=== PATIENT | female | born 1965 | race Caucasian/White ===

== ENCOUNTER 2017-04-02 08:56 | Day surgery (SDC) | payer MEDICAID ==
[~2017-04-02] VITALS: Ht 157.5 cm; Wt 77.3 kg
[~2017-04-02 08:56] MED LIST: DIAZ10TA PO; HYDR-3972 PO; IBUP-1574 PO; OMEP-84 PO; PROM25TA14 PO; TRAM50TA2 PO
[2017-04-02] MEDS ORDERED: PANT-47 PO (09:25)
[2017-04-02] MEDS ORDERED: ZOLP5TAB2 PO (09:25)
[2017-04-02] MEDS ORDERED: EFF25T PO (09:25)
[2017-04-02] MEDS ORDERED: FLUT16SP2 BOTHNARES (09:26)
[2017-04-02 09:47] VITALS: BP 145/89
[2017-04-02] MEDS ORDERED: fentaNYL/PF 50MCG/1 ML 2ML syringe ONE (09:53)
[2017-04-02] MEDS ORDERED: MIDAZolam 1mg/ml 10ml vial ONE (09:54)
[2017-04-02] MEDS ORDERED: LIDOcaine Viscous 15ml cup ONE (09:54)
[2017-04-02 11:00] VITALS: BP 107/78
[2017-04-02 11:10] VITALS: BP 130/88
[2017-04-02 11:20] VITALS: BP 125/77
== END 2017-04-02 11:35 | disposition home or self-care (01) ==
LOC: GI LAB 08:56
PROVIDERS: ATTEND Internal Medicine Gastroenterology
DX: K44.9 Diaphragmatic hernia without obstruction or gangrene (principal); K21.0 Gastro-esophageal reflux disease with esophagitis; K22.2 Esophageal obstruction; M19.90 Unspecified osteoarthritis, unspecified site; F32.9 Major depressive disorder, single episode, unspecified; F17.210 Nicotine dependence, cigarettes, uncomplicated; Z85.41 Personal history of malignant neoplasm of cervix uteri; Z79.1 Long term (current) use of non-steroidal anti-inflammatories (NSAID); Z88.6 Allergy status to analgesic agent; Z90.710 Acquired absence of both cervix and uterus; Z87.19 Personal history of other diseases of the digestive system; Z98.890 Other specified postprocedural states; Z72.89 Other problems related to lifestyle; Z79.899 Other long term (current) drug therapy
CPT/HCPCS: 43239; 43248; 99152; J2250; J3010; J7030; A4620; G0500

== ENCOUNTER 2017-04-07 13:15 | Inpatient (IN) | payer MEDICAID ==
[~2017-04-07] VITALS: Ht 157.5 cm; Wt 75.9 kg
[2017-04-07] VITALS (11 sets, daily range): BP systolic 108–156; BP diastolic 70–88
[~2017-04-07 13:15] MED LIST changes: -DIAZ10TA PO; +EFF25T PO; +FLUT16SP2 BOTHNARES; -HYDR-3972 PO; -OMEP-84 PO; +PANT-47 PO; -PROM25TA14 PO; +ZOLP5TAB2 PO
[2017-04-07 14:05] LABS: BASOPHILS % (AUTO) 0.1 % (0-1); EOSINOPHILS # (AUTO) 0.1 X10'3 (0-0.9); EOSINOPHILS % (AUTO) 0.9 % (0-6); HEMATOCRIT 47.4 % (35.0-45.0); HEMOGLOBIN 16.3 g/dl (12.0-16.0); LYMPHOCYTES % (AUTO) 19.6 % (21-51); MEAN CORPUSCULAR HEMOGLOBIN 31.9 PG (27.0-31.0); MEAN CORPUSCULAR HGB CONC 34.3 % (33.0-36.5); MEAN CORPUSCULAR VOLUME 92.9 FL (78-98); MEAN PLATELET VOLUME 8.6 FL (7.4-10.4); MONOCYTES # (AUTO) 0.5 X10'3 (0-0.9); MONOCYTES % (AUTO) 4.4 % (2-12); NEUTROPHILS # (AUTO) 7.7 X10'3 (1.8-7.7); PLATELET COUNT 306 X10'3 (140-440); RED CELL DISTRIBUTION WIDTH 12.6 % (11.5-14.5); WHITE BLOOD COUNT 10.3 X10'3 (4.5-11.0)
[2017-04-07 14:13] LABS: INR 0.9 INR; PROTHROMBIN TIME 9.6 SECONDS (9.0-12.0)
[2017-04-07 14:21] LABS: ALANINE AMINOTRANSFERASE 30 U/L (12-78); ALBUMIN 3.9 G/DL (3.4-5.0); ALKALINE PHOSPHATASE 144 IU/L (46-116); ANION GAP 9 (8-16); ASPARTATE AMINO TRANSFERASE 19 U/L (10-37); BILIRUBIN,TOTAL 0.3 MG/DL (0.1-1.0); BLOOD UREA NITROGEN 11 MG/DL (7-18); BUN/CREATININE RATIO 14.1 (6.6-38.0); CHLORIDE 101 MMOL/L (99-107); CREATININE 0.78 MG/DL (0.40-0.90); GLUCOSE 156 MG/DL (70-104); POTASSIUM 3.9 MMOL/L (3.5-5.1); SODIUM 140 MMOL/L (135-145); TOTAL CARBON DIOXIDE 30.3 MMOL/L (24-32); TOTAL PROTEIN 7.7 G/DL (6.4-8.2); eGFR 78 ML/MIN
[2017-04-07] MEDS ORDERED: ketorolac trometh. 30mg/ml inj. IV ONE (15:00)
[2017-04-07] MEDS ORDERED: normal saline 1000ML IV soln IVB ONE (15:00)
[2017-04-07] MEDS ORDERED: ondansetron/PF 4mg/2ml inj IV ONE (15:00)
[2017-04-07 15:14] LABS: LIPASE 156 U/L (73-393)
[2017-04-07] MEDS ORDERED: piperacillin/tazo 3.375gm/50ml 50 ML IV SCH (16:50)
[2017-04-07] MEDS ORDERED: HYDROmorphone 1 mg/ml syringe IV ONE (16:50)
[2017-04-07 17:08] LABS: CLARITY,URINE CLEAR (Clear); COLOR,URINE YELLOW (Yellow); GLUCOSE, URINE NEGATIVE (Neg); KETONES,URINE NEGATIVE (Neg); LEUKOCYTE ESTERASE ,URINE NEGATIVE (Neg); NITRITES, URINE NEGATIVE (Neg); OCCULT BLOOD,URINE TRACE-INTACT (Neg); PROTEIN,URINE NEGATIVE (Neg); UROBILINOGEN,URINE 0.2 E.U/dL (0.2-1.0)
[2017-04-07] MEDS ORDERED: HYDROmorphone inj. 0.5 MG/0.5 ML DISP.SYRIN ONE (17:10)
[2017-04-07 17:17] LABS: UA COLLECTION TYPE CLN CATCH MIDSTREAM
[2017-04-07 17:18] LABS: BACTERIA,URINE NONE SEEN /HPF (Neg); MUCUS STRANDS NONE SEEN /LPF (Neg); RBC,URINE 0-2 /HPF (0-2); SQUAMOUS EPITHELIAL CELL,UR FEW /LPF (FEW); WBC,URINE NONE SEEN /HPF (0-4)
[2017-04-07] MEDS ORDERED: FAMO-128 PO (17:24)
[2017-04-07] MEDS ORDERED: pneumococcal 23-VAL P-sac vacc 25 mcg/0.5ml vial IMVAC ONE (18:05)
[2017-04-07] MEDS ORDERED: FLU VACC QS2017-18 36MOS UP/PF 60 MCG/0.5 ML SYRINGE IMVAC ONE (18:05)
[2017-04-07] MEDS ORDERED: HYDROmorphone 1 mg/ml syringe IV PRN ×2 (18:10→21:30)
[2017-04-07] MEDS ORDERED: potassium Cl 40MEQ/NS 500ml 500 ML IV PRN ×2 (18:10)
[2017-04-07] MEDS ORDERED: ondansetron/PF 4mg/2ml inj IV PRN ×3 (18:10→22:05)
[2017-04-07] MEDS ORDERED: potassium Cl 20 mEq SR tablet PO PRN ×2 (18:10)
[2017-04-07] MEDS ORDERED: magnesium 4gm in 100ml NS 100 ML IV PRN (18:10)
[2017-04-07] MEDS ORDERED: magnesium 2GM in 50ml NS 50 ML IV PRN (18:10)
[2017-04-07] MEDS ORDERED: magnesium Cl slow-release 64mg tablet PO PRN (18:10)
[2017-04-07] MEDS ORDERED: mag hydrox/Alum hydrox/simeth 30ml oral suspension PO PRN (18:10)
[2017-04-07] MEDS ORDERED: magnesium hydroxide 30ml (MOM) UD suspension PO PRN (18:10)
[2017-04-07] MEDS: HYDROmorphone inj. 0.5 MG/0.5 ML DISP.SYRIN IV PRN (20:22)
[2017-04-07] MEDS ORDERED: BUPIVAcaine/PF 2.5 mg/ml (0.25%) 30ml vial ONE (20:23)
[2017-04-07] MEDS ORDERED: propofol inj 20 ML IV ONE (20:39)
[2017-04-07] MEDS ORDERED: midazolam 2 mg/2 ml injection ONE (20:39)
[2017-04-07] MEDS ORDERED: fentaNYL/PF 50MCG/1 ML 2ML syringe ONE (20:39)
[2017-04-07] MEDS ORDERED: rocuronium 10mg/ml inj IV ONE (20:40)
[2017-04-07] MEDS ORDERED: sevoflurane 250ml liquid IH ONE (20:46)
[2017-04-07] MEDS ORDERED: ceFOXitin 1000 MG inj ONE ×2 (21:02)
[2017-04-07] MEDS ORDERED: ringers solution, lacted 1,000 ML IV SCH (21:30)
[2017-04-07] MEDS ORDERED: meperidine/PF 50mg/ml syringe IV PRN ×2 (21:30)
[2017-04-07] MEDS ORDERED: neostigmine methylsulfate 1 MG/ML 10ml vial ONE (21:52)
[2017-04-07] MEDS ORDERED: glycopyrrolate 0.2mg/ml inj ONE (21:53)
[2017-04-07] MEDS: meperidine/PF 50mg/ml syringe IV PRN ×4 (22:29→22:51)
[2017-04-08] VITALS (9 sets, daily range): BP systolic 95–141; BP diastolic 65–82
[2017-04-08] MEDS: HYDROmorphone inj. 0.5 MG/0.5 ML DISP.SYRIN IV PRN ×8 (00:37→16:49)
[2017-04-08] MEDS: metroNIDAZOLE-Flagyl 500mg/NS 100 ML IV SCH ×4 (00:38→23:13)
[2017-04-08] MEDS: LORazepam 2 mg/ml vial IV PRN ×2 (00:56→19:56)
[2017-04-08] MEDS: normal saline 1000ml 1,000 ML IV SCH ×4 (01:00→23:13)
[2017-04-08] MEDS ORDERED: HYDROmorphone 2mg/ml vial IV PRN ×2 (01:30→01:50)
[2017-04-08] MEDS ORDERED: HYDROmorphone inj. 0.5 MG/0.5 ML DISP.SYRIN ONE (02:10)
[2017-04-08] MEDS: pantoprazole 40 MG vial IV SCH (07:51)
[2017-04-08] MEDS: K and/or MAG REPLACEMENT MC SCH (08:00)
[2017-04-08] MEDS: levoFLOXACIN-Levaquin 500mg/D5 100 ML IV SCH (10:16)
[2017-04-08] MEDS: lactobacillus rhamnosus 10,000 MMU CELLS/CAPSULE PO SCH (16:48)
[2017-04-08] MEDS: HYDROcodone/acetaminophen 10/325mg tab PO PRN ×2 (19:09→23:13)
[2017-04-08] MEDS ORDERED: sevoflurane 250ml liquid IH ONE (20:46)
[2017-04-09] MEDS: HYDROmorphone inj. 0.5 MG/0.5 ML DISP.SYRIN IV PRN ×3 (02:02→11:49)
[2017-04-09] MEDS: HYDROcodone/acetaminophen 10/325mg tab PO PRN (05:58)
[2017-04-09 07:46] VITALS: BP 125/78
[2017-04-09] MEDS: K and/or MAG REPLACEMENT MC SCH (08:00)
[2017-04-09] MEDS: pantoprazole 40 MG vial IV SCH (08:02)
[2017-04-09] MEDS: lactobacillus rhamnosus 10,000 MMU CELLS/CAPSULE PO SCH (08:02)
[2017-04-09] MEDS: metroNIDAZOLE-Flagyl 500mg/NS 100 ML IV SCH (08:03)
[2017-04-09] MEDS: levoFLOXACIN-Levaquin 500mg/D5 100 ML IV SCH (09:56)
[2017-04-09] MEDS: normal saline 1000ml 1,000 ML IV SCH (10:10)
[2017-04-09] MEDS ORDERED: OXYC-150 PO (10:39)
[2017-04-09] MEDS ORDERED: venlafaxine 25mg tablet PO STA (10:42)
[2017-04-09 11:00] VITALS: BP 143/86
[2017-04-09] MEDS ORDERED: ONDA4TAB6 PO (13:07)
== END 2017-04-09 16:02 | disposition home or self-care (01) | DRG 225 ==
LOC: ER 13:16 → ED HOLD 18:10 → UNDODISIN 19:20 → SUR 3N 19:23
PROVIDERS: ADMIT Internal Medicine; ATTEND Family Medicine
PROC: 0UB04ZX Excision of Right Ovary, Percutaneous Endoscopic Approach, Diagnostic (ICD-10-PCS; 2017-04-07)
PROC: 0DTJ4ZZ Resection of Appendix, Percutaneous Endoscopic Approach (ICD-10-PCS; principal; 2017-04-07 20:46)
DX: K35.80 Unspecified acute appendicitis (principal); I10 Essential (primary) hypertension; F32.9 Major depressive disorder, single episode, unspecified; K22.70 Barrett's esophagus without dysplasia; E07.9 Disorder of thyroid, unspecified; N83.9 Noninflammatory disorder of ovary, fallopian tube and broad ligament, unspecified; M19.90 Unspecified osteoarthritis, unspecified site; F17.210 Nicotine dependence, cigarettes, uncomplicated; Z85.41 Personal history of malignant neoplasm of cervix uteri; Z90.710 Acquired absence of both cervix and uterus; Z23 Encounter for immunization; Z88.5 Allergy status to narcotic agent; Z79.899 Other long term (current) drug therapy
CPT/HCPCS: 36415; 74176; 80053; 81001; 83690; 85025; 85610; 87070; 90732; 96361; 96374; 96375; 99285; A4315; A6251; A6449; A7000; C9113; J0694; J1170; J1885; J1956; J2060; J2175; J2250; J2405; J2543; J2704; J2710; J3010; J3490; J7030; J7120; Q2037

== ENCOUNTER 2018-02-28 15:37 | Emergency (ER) | payer MEDICAID ==
[~2018-02-28] VITALS: Ht 157.5 cm; Wt 76.4 kg
[~2018-02-28 15:37] MED LIST changes: +FAMO-128 PO; -IBUP-1574 PO; +ONDA4TAB6 PO; +OXYC-150 PO; -PANT-47 PO
[2018-02-28 16:00] VITALS: BP 145/97
[2018-02-28] MEDS ORDERED: dexamethasone sod phosphate 10mg/ml inj PO STA (18:06)
[2018-02-28] MEDS ORDERED: DEC1T PO (18:09)
[2018-02-28] MEDS ORDERED: ACYC-202 PO (18:09)
[2018-02-28] MEDS ORDERED: ketorolac tromethamine 15mg/ml inj. IM ONE (18:10)
== END 2018-02-28 18:53 | disposition home or self-care (01) ==
LOC: ER 15:38
DX: L50.9 Urticaria, unspecified (principal); F32.9 Major depressive disorder, single episode, unspecified; M19.90 Unspecified osteoarthritis, unspecified site; Z90.710 Acquired absence of both cervix and uterus; Z88.5 Allergy status to narcotic agent
CPT/HCPCS: 96372; 99283; J1100; J1885

== ENCOUNTER 2019-02-14 12:58 | Emergency (ER) | payer MEDICAID, OTHER ==
[~2019-02-14] VITALS: Ht 157.5 cm; Wt 70.0 kg
[2019-02-14 13:02] VITALS: BP 166/69
[2019-02-14] MEDS ORDERED: HYDR-4353 PO (14:42)
[2019-02-14] MEDS ORDERED: PENI500T2 PO (14:42)
== END 2019-02-14 15:23 | disposition home or self-care (01) ==
LOC: ER 13:07
DX: K08.89 Other specified disorders of teeth and supporting structures (principal); R51 Headache; F32.9 Major depressive disorder, single episode, unspecified; F17.200 Nicotine dependence, unspecified, uncomplicated; F10.99 Alcohol use, unspecified with unspecified alcohol-induced disorder; F12.90 Cannabis use, unspecified, uncomplicated; M19.90 Unspecified osteoarthritis, unspecified site; Z90.49 Acquired absence of other specified parts of digestive tract; Z90.710 Acquired absence of both cervix and uterus; Z98.890 Other specified postprocedural states; Z88.5 Allergy status to narcotic agent; Z79.899 Other long term (current) drug therapy; Y90.9 Presence of alcohol in blood, level not specified
CPT/HCPCS: 99283

== ENCOUNTER 2021-03-18 08:22 | Emergency (ER) | payer SELFPAY ==
[~2021-03-18] VITALS: Ht 154.9 cm; Wt 68.0 kg
[~2021-03-18 08:22] MED LIST changes: -EFF25T PO; +VENL25TA48 PO
[2021-03-18 08:31] VITALS: BP 163/76
[2021-03-18] MEDS ORDERED: AMOX-422 PO (15:00)
[2021-03-18] MEDS ORDERED: amox tr/potassium clavulanate 875/125mg TAB PO ONE (15:00)
== END 2021-03-18 15:49 | disposition home or self-care (01) ==
LOC: ER 08:23
DX: K04.7 Periapical abscess without sinus (principal); F12.90 Cannabis use, unspecified, uncomplicated; M19.90 Unspecified osteoarthritis, unspecified site; Z90.49 Acquired absence of other specified parts of digestive tract; Z90.710 Acquired absence of both cervix and uterus; Z87.891 Personal history of nicotine dependence; Z88.5 Allergy status to narcotic agent; Z79.899 Other long term (current) drug therapy
CPT/HCPCS: 99283

== ENCOUNTER 2022-12-21 15:51 | Emergency (ER) | payer OTHER ==
[~2022-12-21] VITALS: Ht 157.5 cm; Wt 72.7 kg
[2022-12-21 15:55] VITALS: TEMP 98.4
[2022-12-21 16:22] LABS: BASOPHILS % (AUTO) 0.2 % (0-1); EOSINOPHILS % (AUTO) 0 % (0-6); HEMATOCRIT 44.3 % (35.0-45.0); HEMOGLOBIN 14.7 g/dl (12.0-16.0); LYMPHOCYTES # (AUTO) 0.9 X10'3 (1.1-4.8); LYMPHOCYTES % (AUTO) 6.4 % (21-51); MEAN CORPUSCULAR HGB CONC 33.2 g/dL (33.0-36.5); MEAN CORPUSCULAR VOLUME 90.5 FL (78-98); MONOCYTES # (AUTO) 0.5 X10'3 (0-0.9); MONOCYTES % (AUTO) 3.6 % (2-12); NEUTROPHILS # (AUTO) 12.5 X10'3 (1.8-7.7); NEUTROPHILS % (AUTO) 89.8 % (42-75); PLATELET COUNT 298 X10'3 (140-440); RED CELL DISTRIBUTION WIDTH 12.6 % (11.5-14.5)
[2022-12-21] MEDS ORDERED: normal saline 500ml IV soln 500 ML IV ONE (16:25)
[2022-12-21 16:41] LABS: ALANINE AMINOTRANSFERASE 49 U/L (12-78); ALBUMIN 3.3 G/DL (3.4-5.0); ALBUMIN/GLOBULIN RATIO 0.9 (1.1-1.5); ALKALINE PHOSPHATASE 121 IU/L (46-116); ANION GAP 9 (8-16); ASPARTATE AMINO TRANSFERASE 32 U/L (10-37); BILIRUBIN,TOTAL 0.4 MG/DL (0.1-1.0); BLOOD UREA NITROGEN 9 MG/DL (7-18); BUN/CREATININE RATIO 12.5 (10.0-20.0); CALCIUM 8.5 MG/DL (8.5-10.1); CHLORIDE 104 MMOL/L (99-107); CREATININE 0.72 MG/DL (0.40-0.90); GLUCOSE 177 MG/DL (70-104); POTASSIUM 3.7 MMOL/L (3.5-5.1); SODIUM 139 MMOL/L (135-145); TOTAL CARBON DIOXIDE 26.2 MMOL/L (24-32); TOTAL PROTEIN 6.8 G/DL (6.4-8.2); eCRCL 69 ML/MIN; eGFR 84 ML/MIN
[2022-12-21 16:50] LABS: D-DIMER 1.84 MG/L FEU (0-0.50)
[2022-12-21 16:51] LABS: PRO BRAIN NATRIURETIC PEPTIDE 109 PG/ML (0-125)
[2022-12-21] MEDS ORDERED: iohexol 350MG/ML 100ml bottle IV ONE (17:34)
[2022-12-21 18:15] VITALS: PULSE 100; RESP 18; O2SAT 97
[2022-12-21 18:30] VITALS: BP 116/69
[2022-12-21] MEDS ORDERED: AZIT-164 PO (19:19)
== END 2022-12-21 19:34 | disposition home or self-care (01) ==
LOC: ER 15:52
DX: R07.9 Chest pain, unspecified (principal); J98.4 Other disorders of lung
CPT/HCPCS: 36415; 71045; 71275; 80053; 83880; 84484; 85025; 85379; 93005; 96360; 99285; J3490; J7040; Q9967